=== PATIENT | female | born 1960 | race Caucasian/White ===

== ENCOUNTER 2019-01-09 15:54 | Emergency (ER) | payer OTHER ==
[~2019-01-09] VITALS: Ht 160 cm; Wt 109.1 kg
[~2019-01-09 15:54] MED LIST: ASPI81 PO; LISI1TAB9 PO
[2019-01-09] MEDS ORDERED: NAPR-1024 PO (16:29)
[2019-01-09] MEDS ORDERED: LISI-661 PO (16:29)
[2019-01-09 18:50] VITALS: BP 123/64
== END 2019-01-09 19:20 | disposition home or self-care (01) ==
LOC: EMS 15:55
DX: M72.2 Plantar fascial fibromatosis (principal); I10 Essential (primary) hypertension; Z79.899 Other long term (current) drug therapy